=== PATIENT | male | born 1985 | race African-American/Black ===

== ENCOUNTER 2020-06-27 20:50 | Emergency (ER) | payer OTHER ==
[~2020-06-27] VITALS: Ht 182.9 cm; Wt 92.2 kg
[2020-06-27 21:13] VITALS: BP 129/71
[2020-06-27] MEDS ORDERED: TETRACAINE 0.5% OPHTH SOLUTION 4ML BOTTLE. ONE (21:21)
--- NOTE | 2020-06-27 21:27 | PHYS DOC ---
Past History Past Medical History: No Pertinent History Past Surgical History: No Surgical History Alcohol Use: None General Adult EDM: Chief Complaint: EYE PROBLEMS HPI: HPI: ".. I got this discharge and swollen eye lid on the Rt. My sister said I needed to get in right away.. 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 Patient has noted has had swelling to upper right lid. No change in vision. No history of recent travel overseas. Has recently traveled from [place]. Patient is up-to-date with vaccinations. No history immunosuppression. Patient denies any recent injuries. Review of Systems: Review of Systems: Constitutional: Denies fever or chills Eyes: Complains of right lid edema HENT: Denies nasal congestion or sore throat Respiratory: Denies cough or shortness of breath Cardiovascular: Denies chest pain or edema GI: Denies abdominal pain, nausea, vomiting, bloody stools or diarrhea : Denies dysuria Musculoskeletal: Denies back pain or joint pain Integument: Denies rash Neurologic: Denies headache, focal weakness or sensory changes Endocrine: Denies polyuria or polydipsia Lymphatic: Denies swollen glands Psychiatric: Denies depression or anxiety Heart Score: Risk Factors: Risk Factors: DM, Current or recent (<one month) smoker, HTN, HLP, family history of CAD, obesity. Risk Scores: Score 0 - 3: 2.5% MACE over next 6 weeks - Discharge Home Score 4 - 6: 20.3% MACE over next 6 weeks - Admit for Clinical Observation Score 7 - 10: 72.7% MACE over next 6 weeks - Early Invasive Strategies Family History: Family History: Noncontributory Current Medications: Current Meds: Current Medications Medications (Trade) Dose Ordered Sig/Ashwini Start Time Stop Time Status Last Admin Dose Admin Tetracaine HCl (Tetracaine) 40 drop STK-MED ONCE 06/27/20 21:21 06/27/20 21:22 DC Allergies: Allergies: Allergies Coded Allergies Type Severity Reaction Last Updated Verified No Known Drug Allergies 06/27/20 No Physical Exam: PE: Constitutional: Well developed, well nourished, no acute distress, non-toxic appearance. [] HENT: Normocephalic, atraumatic, bilateral external ears normal, oropharynx moist, no oral exudates, nose normal. [] Eyes: PERRLA, EOMI, conjunctiva very minimal injection and right line, no discharge. [Upper lid edematous. No adenopathy at angle. Visual acuity 2010 in both eyes. Neck: Normal range of motion, no tenderness, supple, no stridor. [] Cardiovascular:Heart rate regular rhythm, no murmur [] Lungs & Thorax: Bilateral breath sounds equal apex on auscultation [] Abdomen: Bowel sounds normal, soft, no tenderness, no masses, no pulsatile masses. [] Skin: Warm, dry, no erythema, no rash. [] Back: No tenderness, no CVA tenderness. [] Extremities: No tenderness, no cyanosis, no clubbing, ROM intact, no edema. [] Neurologic: Alert and oriented X 3, normal motor function, normal sensory function, no focal deficits noted. [] Psychologic: Affect anxious, judgement normal, mood normal. [] Current Patient Data: Vital Signs: Vital Signs Date Time Temp Pulse Resp B/P (MAP) Pulse Ox O2 Delivery O2 Flow Rate FiO2 06/27/20 21:13 98.4 82 18 129/71 (90) 96 Room Air EKG: EKG: [] Radiology/Procedures: Radiology/Procedures: [] Course & Med Decision Making: Course & Med Decision Making Pertinent Labs and Imaging studies reviewed. (See chart for details) Patient apply a very small amount erythromycin ointment to right eye 4 times a day. Patient take Bactrim DS twice a day. Patient use warm compresses on right eye 4 times a day.. Patient follow-up with ophthalmology. Patient may follow- up at [place] however is unable to get in at [place] recommended follow-up with ophthalmology. Impression: 1. Rt. Conjunctivitis 2. Rt. Upper eye lid [place] gland dysfunction 3 Dragon Disclaimer: Erlin Disclaimer: This electronic medical record was generated, in whole or in part, using a voice recognition dictation system. Departure Departure: Disposition: 01 DC HOME SELF CARE/HOMELESS Condition: STABLE Referrals: PCP,UNKNOWN (PCP) Scripts Sulfamethoxazole/Trimethoprim (BACTRIM DS TABLET) 1 Each Tablet 1 TAB PO BID for upper lid cellultis for 10 Days, #20 TAB 0 Refills Prov: LO OSBORN MD 06/27/20 LO OSBORN MD Jun 27, 2020 21:27
[2020-06-27] MEDS ORDERED: FLUORESCEIN 1MG EYE STRIP. OU ONE (22:00)
[2020-06-27] MEDS ORDERED: ERYTHROMYCIN 0.5% OPHTH OINTMENT 1GM TUBE. OS ONE (22:00)
[2020-06-27] MEDS ORDERED: SULF1TAB24 PO (22:18)
[2020-06-27] MEDS ORDERED: cefTRIAXone IM 1 GM VIAL IM ONE (22:30)
[2020-06-27] MEDS ORDERED: SMZ/TMP 800/160MG TABLET. PO ONE (22:30)
== END 2020-06-27 22:39 | disposition home or self-care (01) ==
LOC: ER 20:50
DX: H10.9 Unspecified conjunctivitis (principal); H02.881 Meibomian gland dysfunction right upper eyelid
CPT/HCPCS: 96372; 99283; J0696